=== PATIENT | female | born 1980 | race Caucasian/White ===

== ENCOUNTER 2021-06-26 15:28 | Emergency (ER) | payer OTHER, MEDICAID, SELFPAY ==
[2021-06-26] VITALS (25 sets, daily range): BP systolic 114–173; BP diastolic 60–96; PULSE 64–115; RESP 14–34; TEMP 36.6; O2SAT 93–100; BMI 28.3
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
--- NOTE | 2021-06-26 15:32 | ED.MVA ---
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 or any new, worsening or concerning symptoms Referrals: Miscellaneous,Doctor, MD [Primary Care Provider] -
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
[2021-06-26] MEDS: HYDROMORPHONE 1 MG INJ 2 MG IV (16:23)
[2021-06-26] MEDS: LORazepam 2 MG/ML INJ 1 MG IV ×2 (16:40→17:10)
[2021-06-26] MEDS: HYDROMORPHONE 1 MG INJ IV ×2 (16:40→17:10)
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
[2021-06-26 17:34] LABS: Add Manual Diff / Slide Review NO; Basophils Absolute Auto 100 /uL (0-100); Basophils Percent Auto 1.5 % (0-2); Eosinophils Absolute Auto 100 /uL (0-450); Hematocrit 32.7 % (36-46); Hemoglobin 11.2 g/dL (12.0-16.0); Lymphocytes Absolute Auto 1200 /uL (1100-4500); Lymphocytes Percent Auto 20.8 % (25-40); Mean Corpuscular HGB Conc 34.2 % (30-36); Monocytes Absolute Auto 300 /uL (0-900); Monocytes Percent Auto 4.9 % (3-14); Neutrophils Absolute Auto 4100 /uL (1500-7000); Neutrophils Percent Auto 70.8 % (50-75); Platelet Count 284 X10^3/uL (150-400); Red Blood Cell Count 3.98 X10^6/uL (4.0-5.2); Red Cell Distribution Width 15.2 % (11.6-14.8); White Blood Cell Count 5.8 X10^3/uL (4.5-11.0)
[2021-06-26] MEDS: LIDOCAINE 2% INJ MDV 40 ML INJ (17:40)
[2021-06-26 17:49] LABS: Alanine Aminotransferase 123 IU/L (<35); Albumin Globulin Ratio 1.1 (1.0-2.8); Alkaline Phosphatase 84 U/L (38-126); Aspartate Aminotransferase 109 IU/L (14-36); BUN Creatinine Ratio 26.9 (6-22); Bilirubin Total 0.6 mg/dL (0.2-1.3); Blood Urea Nitrogen 14 mg/dL (7-17); Calcium 8.5 mg/dL (8.4-10.2); Carbon Dioxide 28 mmol/L (22-32); Chloride 105 mmol/L (98-107); Estimated Glomerular Filt Rate > 60 mL/min (>60); Ethanol (ETOH) < 10 mg/dL; Globulin 3.6 g/dL (1.7-4.1); Glucose 108 mg/dL (70-100); HEMOLYSIS < 15 (0-50); Lipase 71 U/L (23-300); Potassium 3.7 mmol/L (3.4-5.1); Sodium 136 mmol/L (137-145); Total Protein 7.6 g/dL (6.3-8.2)
[2021-06-26 17:52] LABS: Pregnancy Test Serum,Qual Negative (Negative)
--- NOTE | 2021-06-26 18:35 | PC.NURSE ---
pt removed 1 bag of dark hard substance pt stated it was heroin pt also removed bag of blue pills. all bags removed from vagina and md visualized no other foreign bodies in vagina. pt states nothing else in vagina and nothing in rectum. chaperoned md and patient for procedure.
--- NOTE | 2021-06-26 18:47 | PC.NURSE ---
trying to call phone numbers that patient can remember for , one message left, working to find or ride home to [place] with responsible adult.
--- NOTE | 2021-06-26 18:58 | PC.NURSE ---
1650 discontinued right leg IO 1815 discontinued right chest central line
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
[2021-06-26] MEDS: NALOXONE 1 MG/ML SYRINGE 2 MG IV ×2 (19:29→22:46)
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
--- NOTE | 2021-06-26 20:19 | PC.NURSE ---
earle paula called back not at that adress but sister danni subramanian does live at that address phone for danni [phone] and she is coming to pick patient up from hospital.
[2021-06-26] MEDS: NALOXONE 1 MG/ML SYRINGE NASAL ×2 (22:07→22:22)
[2021-06-26] MEDS: NALOXONE 4 MG NASAL SPRAY MISC (22:10)
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
== END 2021-06-26 23:02 | disposition home or self-care (01) ==
PROVIDERS: Physician Assistant; Emergency Provider Emergency Medicine
DX: M54.50 Low back pain, unspecified (principal); R07.9 Chest pain, unspecified; F11.90 Opioid use, unspecified, uncomplicated; S09.90XA Unspecified injury of head, initial encounter; T40.601A Poisoning by unspecified narcotics, accidental (unintentional), initial encounter; V49.9XXA Car occupant (driver) (passenger) injured in unspecified traffic accident, initial encounter
CPT/HCPCS: 36573; 70450; 71045; 71260; 72125; 72170; 74177; 80053; 80320; 83690; 84703; 85025; 96374; 96375; 96376; 99284; A9270; J1170; J2060; J2310; Q9967